=== PATIENT | female | born 1980 | race Caucasian/White ===

== ENCOUNTER 2017-01-20 18:55 | Emergency (ER) | payer OTHER ==
--- NOTE | ~2017-01-20 | EKG ---
PATIENT: KENTRELL ZEE UNIT #: [id number] Ventricular Rate: 80 BPM Atrial Rate: 80 BPM P-R Interval: 148 ms QRS Duration: 76 ms Q-T Interval: 388 ms QTC Calculation(Bezet): 447 ms P [place]: 51 degrees Calculated R [place]: 51 degrees Calculated T [place]: 36 degrees Diagnosis Line: Normal sinus rhythm Diagnosis Line: Normal ECG Diagnosis Line: Diagnosis Line: Confirmed by JAIRO MARIEE MD ([id number]) on Diagnosis Line: 01/21/2017 1:39:07 PM INTERPRETING MD: JAYLENE SANCHEZ
[~2017-01-20 18:55] MED LIST: ALBUTEROL HFA INH; AMOXICILLIN875 MG PO; CLARITIN D; HYDROXYZINE HCL25 M1; MEDROL4 MG/DOSE- PO; NEURONTIN800 MG; NEXIUM5 MG; PROMETHAZINE D118 ML PO; TIZANIDINE HCL4 M1; TYLENOL #3 PO; VENLAFAXINE H37.5 M1
[2017-01-20 19:59] LABS: URINE SOURCE CLEAN CATCH
[2017-01-20 20:02] LABS: URINE APPEARANCE HAZY; URINE BILIRUBIN NEG (NEG); URINE BLOOD NEG (NEG); URINE COLOR YELLOW; URINE GLUCOSE NEG (NORM); URINE KETONE NEG (NEG); URINE LEUKOCYTE ESTERASE NEG (NEG); URINE NITRATE NEG (NEG); URINE PH 7.5 (5-8); URINE PROTEIN NEG (NEG); URINE SPECIFIC GRAVITY 1.015 (1.003-1.035); URINE UROBILINOGEN 0.2 MG/DL (NORM)
[2017-01-20 20:04] LABS: MICRO INDICATED? NO
[2017-01-20 20:22] LABS: BASOPHIL% 0.6 % (0-2.5); EOSINOPHIL# 0.3 X10e3 (0-0.7); HEMATOCRIT 35.8 % (35.0-45.0); HEMOGLOBIN 11.8 gm/dL (12.0-16.0); LYMPHOCYTE# 1.3 X10e3 (1.0-3.5); LYMPHOCYTE% 21.1 % (17.0-45.0); MEAN CELL VOLUME 89.7 FL (83-96); MEAN CORPUSCULAR HEMOGLOBIN 29.5 PG (28-34); MEAN CORPUSCULAR HGB CONC 32.9 g/dL (30-36); MEAN PLATELET VOLUME 9.8 FL (6.5-11.5); MONOCYTE# 0.6 X10e3 (0-1.0); MONOCYTE% 10.1 % (3.0-12.0); NEUTROPHIL% 63.2 % (40-75); PLATELET COUNT 310 X10e3 (140-420); WHITE BLOOD COUNT 6.3 X10e3 (4.0-10.5)
[2017-01-20 20:23] LABS: DIFF IND NO
[2017-01-20 20:40] LABS: POC - CKMB <1.0 ng/mL (0.0-7.9); POC - TROPONIN <0.05 ng/mL (<=0.05)
[2017-01-20 20:45] LABS: ALBUMIN SERUM 4.3 g/dL (3.5-5.0); BILIRUBIN, DIRECT 0.1 mg/dL (0.0-0.2); BILIRUBIN,INDIRECT 0.3 mg/dL (0.0-0.9); BILIRUBIN,TOTAL 0.4 mg/dL (0.2-2.0); BUN/CREATININE RATIO 18.75; CREATININE SERUM 0.8 mg/dL (0.6-1.4); GLOM FILT RATE Estimated 93.6 mL/min (>60); POTASSIUM 3.9 mmol/L (3.5-5.1); PROTEIN TOTAL SERUM 7.3 g/dL (6.0-8.3)
== END 2017-01-20 21:35 | disposition home or self-care (01) ==
LOC: SED 18:55
PROVIDERS: Emergency Medicine
DX: R42 Dizziness and giddiness (principal); F41.9 Anxiety disorder, unspecified; D64.9 Anemia, unspecified; Z90.710 Acquired absence of both cervix and uterus; Z90.89 Acquired absence of other organs; Z88.5 Allergy status to narcotic agent; Z91.040 Latex allergy status; Z91.041 Radiographic dye allergy status; Z91.013 Allergy to seafood; Z79.899 Other long term (current) drug therapy
CPT/HCPCS: 36415; 80048; 80076; 81003; 82553; 84484; 84703; 85025; 93005; 96361; 96374; 99284; J2405

== ENCOUNTER 2017-02-07 18:55 | Emergency (ER) | payer OTHER ==
[2017-02-07] MEDS ORDERED: CITRANATAL B-C1 EAC1 (19:03)
[2017-02-07] MEDS ORDERED: EFFEXOR (19:03)
[2017-02-07 19:13] LABS: URINE SOURCE CLEAN CATCH
[2017-02-07 19:20] LABS: URINE APPEARANCE CLEAR; URINE BILIRUBIN NEG (NEG); URINE BLOOD NEG (NEG); URINE COLOR YELLOW; URINE GLUCOSE NEG (NORM); URINE KETONE TRACE (NEG); URINE LEUKOCYTE ESTERASE NEG (NEG); URINE NITRATE NEG (NEG); URINE PROTEIN NEG (NEG); URINE SPECIFIC GRAVITY >=1.030 (1.003-1.035)
[2017-02-07 19:21] LABS: MICRO INDICATED? NO
[2017-02-10 00:14] LABS: CHLAMYDIA TRACH Not Detected (Not Detected); N GONOR Not Detected (Not Detected)
== END 2017-02-07 20:18 | disposition home or self-care (01) ==
LOC: SED 18:55
PROVIDERS: Emergency Medicine
DX: R30.0 Dysuria (principal); N89.8 Other specified noninflammatory disorders of vagina; M79.7 Fibromyalgia; M06.9 Rheumatoid arthritis, unspecified; F41.9 Anxiety disorder, unspecified; Z90.710 Acquired absence of both cervix and uterus; Z90.89 Acquired absence of other organs; Z88.5 Allergy status to narcotic agent; Z91.040 Latex allergy status; Z91.013 Allergy to seafood; Z79.899 Other long term (current) drug therapy
CPT/HCPCS: 81003; 87210; 87491; 87591; 87808; 87905; 96372; 99283; J0696

== ENCOUNTER 2017-04-15 19:40 | Emergency (ER) | payer OTHER ==
[~2017-04-15] VITALS: Ht 175.3 cm; Wt 81.6 kg
[~2017-04-15 19:40] MED LIST changes: +CITRANATAL B-C1 EAC1; +EFFEXOR
== END 2017-04-15 20:40 | disposition home or self-care (01) ==
LOC: SED 19:40
DX: G50.0 Trigeminal neuralgia (principal); F41.9 Anxiety disorder, unspecified; M79.7 Fibromyalgia; Z88.5 Allergy status to narcotic agent; Z91.040 Latex allergy status; Z91.041 Radiographic dye allergy status
CPT/HCPCS: 99283